=== PATIENT | female | born 1995 | race Two or more races ===

== ENCOUNTER 2018-09-11 13:40 | Emergency (ER) | payer OTHER ==
[~2018-09-11 13:40] MED LIST: ISOVUE-370 76%-LOCM 1 ML ONE
[2018-09-11 14:10] LABS: #Basophils 0.1 thou/uL (0.0-0.2); #Eosinphils 0.3 thou/uL (0.0-0.7); #Lymphocytes 1.7 thou/uL (1.20-3.40); #Monocytes 0.5 thou/uL (0.11-0.59); %Eosinophils 3.9 % (0.0-10.0); %Lymphocytes 22.7 % (21.0-51.0); %Neutrophils 66.4 % (42.0-75.0); Hemoglobin 9.9 g/dL (12.0-16.0); Mean Corpuscular HGB CONC 31.9 g/dL (32.0-36.0); Mean Corpuscular Hemoglobin 27.2 pg (27.0-31.0); Mean Corpuscular Volume 85.2 fL (78.0-98.0); Mean Platelet Volume 6.7 fL (7.4-10.4); Platelet Count 437 thou/uL (130-400); RBC Distribution Width 14.7 % (11.5-14.5); Red Blood Cell (RBC) Count 3.65 mill/uL (4.20-5.40); White Blood Cell (WBC) Count 7.5 thou/uL (4.8-10.8)
[2018-09-11 14:33] LABS: ALT (SGPT) 42 U/L (8-55); AST (SGOT) 29 U/L (5-34); Albumin 3.3 g/dL (3.5-5.0); Alkaline Phosphatase 142 U/L (40-150); Anion Gap 9 mmol/L (10-20); BUN (Urea Nitrogen) 10 mg/dL (7.0-18.7); Bilirubin, Total 0.3 mg/dL (0.2-1.2); Calc. Creatinine Clearance 0 mL/min (70-130); Carbon Dioxide 25 mmol/L (22-29); Chloride 111 mmol/L (98-107); Estimated GFR-MDRD Greater than 90; Globulin 2.6 g/dL (2.4-3.5); Glucose 87 mg/dL (70-105); Potassium 4.3 mmol/L (3.5-5.1); Protein, Total 5.9 g/dL (6.0-8.3); Sodium 141 mmol/L (136-145)
[2018-09-11 15:06] LABS: Bilirubin Negative (Negative); Blood, Urine Large (Negative); Clarity CLEAR (Clear); Glucose, Urine (Dipstick) Negative (Negative); Leukocyte Trace (Negative); Nitrite Negative (Negative); Protein, Urine (Dipstick) Trace mg/dL (Neg-Trace); Specific Gravity, Urine 1.022 (1.002-1.036); pH, Urine 5.5 (5.0-9.0)
--- NOTE | 2018-09-11 15:07 | RAD ---
PORTABLE CHEST: Date: 09/11/18 HISTORY: Shortness of breath. FINDINGS: Lung lyons are clear. No infiltrate seen. Heart and mediastinum unremarkable. IMPRESSION: Negative portable chest. POS: [facility]
[2018-09-11 15:08] LABS: Bacteria/HPF Rare-Few HPF (None Seen); Hyaline Casts/LPF 0-3 HYALINE CAST LPF (0-3 Hyaline); Pathc Cast-AUWi Flag 0.58 (0-2.49); RBC/HPF GREATER THAN 50-TNTC HPF (0-3)
[2018-09-11] MEDS ORDERED: Furosemide 40 MG/4 ML VIAL ONE (15:51)
--- NOTE | 2018-09-11 16:23 | CT ---
CT ARTERIOGRAM CHEST WITH IV CONTRAST AND 3D MIP IMAGIN09/11/18 HISTORY: Chest pain. Dyspnea. Recent childbirth. FINDINGS: There is good contrast opacification of the pulmonary arteries and thoracic aorta with normal branchi ng of the great vessels. No lobar consolidation, pleural fluid, pneumothorax, or mediastinal adenopat hy are apparent. Within the partially visualized upper abdomen, heterogeneous enhancement of the sple en is noted and favored to represent the normal heterogeneity of arterial phase imaging. IMPRESSION: No CT evidence of pulmonary embolus. POS: [facility]
== END 2018-09-11 16:22 | disposition home or self-care (01) ==
LOC: ERS 13:40
DX: O90.89 Other complications of the puerperium, not elsewhere classified (principal); R60.0 Localized edema
CPT/HCPCS: 36415; 71045; 71275; 80053; 81003; 81015; 83880; 85025; 93005; 94760; 96374; J1940